=== PATIENT | male | born 1985 | race Caucasian/White ===

== ENCOUNTER 2024-01-13 16:48 | Emergency (ER) | payer BC ==
[~2024-01-13] VITALS: Ht 180.3 cm; Wt 79.4 kg
[2024-01-13 18:21] VITALS: O2SAT 99
== END 2024-01-13 21:45 | disposition left against medical advice (07) ==
LOC: ER 16:48
DX: R42 Dizziness and giddiness (principal); Z53.21 Procedure and treatment not carried out due to patient leaving prior to being seen by health care provider
CPT/HCPCS: A4606; A4663